=== PATIENT | male | born 2000 | race Hispanic/Latino ===

== ENCOUNTER 2024-05-16 10:36 | Emergency (ER) | payer OTHER ==
[2024-05-16] MEDS ORDERED: Bupivacaine 0.5% 10 ML VIAL ONE (10:42)
[2024-05-16] MEDS ORDERED: Bacitracin 1 PK ONE (11:59)
[2024-05-16] MEDS ORDERED: Boostrix 0.5 ML (Tdap) VIAL (>/=7 yrs of age) ONE (12:31)
== END 2024-05-16 12:47 | disposition home or self-care (01) ==
LOC: NAV ERS 10:36
DX: S61.212A Laceration without foreign body of right middle finger without damage to nail, initial encounter (principal); Z23 Encounter for immunization; W11.XXXA Fall on and from ladder, initial encounter
CPT/HCPCS: 12002; 90471; 90715; J3490

== ENCOUNTER 2024-05-23 15:15 | Emergency (ER) | payer OTHER | END 2024-05-23 16:46 | disposition home or self-care (01) | LOC: NAV ERS 15:15 | DX: S63.632D Sprain of interphalangeal joint of right middle finger, subsequent encounter (principal); S61.212D Laceration without foreign body of right middle finger without damage to nail, subsequent encounter; W01.0XXD Fall on same level from slipping, tripping and stumbling without subsequent striking against object, subsequent encounter | CPT/HCPCS: 99283 ==